=== PATIENT | male | born 1970 | race Caucasian/White ===

== ENCOUNTER 2018-10-16 22:10 | Emergency (ER) | payer OTHER ==
[2018-10-16 22:28] VITALS: TEMP 98
[2018-10-16 22:36] VITALS: BP 121/94; PULSE 93; RESP 21; O2SAT 100
== END 2018-10-16 22:45 | DRG 897 ==
LOC: ED 22:10
DX: F15.10 Other stimulant abuse, uncomplicated (principal)
CPT/HCPCS: 99282